=== PATIENT | male | born 1985 | race Caucasian/White ===

== ENCOUNTER 2016-07-15 04:47 | Emergency (ER) | payer OTHER ==
[2016-07-15 05:07] VITALS: TEMP 97.5
[2016-07-15] MEDS ORDERED: Sodium Chloride 0.9% 1,000 ML IV ONE ×2 (05:12→05:44)
[2016-07-15 05:32] LABS: BASO % 0.2 % (0.0-2.0); HEMATOCRIT 41.7 % (35.0-51.0); LYMPH # 0.4 K/uL (1.0-4.3); LYMPH % 2.9 % (20.0-40.0); MEAN CELL VOLUME 89.4 fL (80.0-94.0); MEAN CORPUSCULAR HEMOGLOBIN 29.3 pg (27.0-31.0); MEAN CORPUSCULAR HGB CONC 32.8 g/dL (33.0-37.0); MEAN PLATELET VOLUME 7.6 fL (7.2-11.7); MONO # 0.3 K/uL (0.0-0.8); MONO % 2.4 % (0.0-10.0); PLATELET COUNT 309 K/uL (130-400); WHITE BLOOD COUNT 13.8 K/uL (4.8-10.8)
[2016-07-15 05:42] LABS: CHLORIDE 98 mmol/L (98-107)
[2016-07-15 05:43] LABS: SODIUM 139 mmol/L (132-148)
[2016-07-15 05:45] LABS: ALB/GLOB RATIO 1.5 (1.0-2.1); ALKALINE PHOSPHATASE 61 U/L (38-126); ALT/SGPT 20 U/L (21-72); AST/SGOT 18 U/L (17-59); BILIRUBIN,TOTAL 0.8 mg/dL (0.2-1.3); BLOOD UREA NITROGEN 12 mg/dL (9-20); CARBON DIOXIDE 23 mmol/L (22-30); GFR AFRICAN-AMERICAN > 60; GLUCOSE,RANDOM 121 mg/dL (75-110); TOTAL PROTEIN 7.7 g/dL (6.3-8.3)
[2016-07-15 05:46] LABS: CALCIUM 9.3 mg/dl (8.6-10.4)
--- NOTE | 2016-07-15 06:15 | C.PDOC ---
History Of Present Illness 30 year old male presents to the ED with complaints of epigastric pain after eating dinner and three episodes of non-bloody non-bilious vomiting. Patient notes a history of irritable bowl syndrome and had no complaints prior to dinner. He denies any fever or diarrhea. Chief Complaint (Nursing): Abdominal Pain History Per: Patient History/Exam Limitations: no limitations Onset/Duration Of Symptoms: Hrs Current Symptoms Are (Timing): Still Present Context: Food Location Of Pain/Discomfort: Epigastric Quality Of Discomfort: "Pain" Associated Symptoms: Vomiting. denies: Fever, Chills, Diarrhea Exacerbating Factors: denies: Cough Past Medical History Reviewed: Historical Data, Nursing Documentation, Vital Signs Vital Signs: Last Vital Signs Temp 97.5 F L 07/15/16 05:00 Pulse 82 07/15/16 05:00 Resp 20 07/15/16 05:00 BP 120/74 07/15/16 05:00 Pulse Ox 99 07/15/16 06:17 Family History: States: Unknown Family Hx - Social History Hx Alcohol Use: No Hx Substance Use: No Review Of Systems Constitutional: Negative for: Fever, Chills, Sweats Respiratory: Negative for: Cough, Shortness of Breath Gastrointestinal: Positive for: Vomiting, Abdominal Pain (epigastric). Negative for: Nausea, Diarrhea Physical Exam - Physical Exam Appears: Non-toxic, No Acute Distress Skin: Warm, Dry Head: Normacephalic Eye(s): bilateral: PERRL, EOMI Ear(s): Bilateral: Normal Nose: Normal Oral Mucosa: Dry Tongue: Normal Appearing, No Swelling Lips: Normal Appearing, No Swelling Throat: Normal, No Erythema Neck: Normal ROM, Supple Chest: Symmetrical, No Deformity Cardiovascular: Rhythm Regular Respiratory: No Accessory Muscle Use, No Rales, No Rhonchi, No Stridor, No Wheezing Gastrointestinal/Abdominal: Soft, No Tenderness, No Distention, No Guarding, No Rebound Extremity: Normal ROM, No Tenderness Neurological/Psych: Oriented x3 ED Course And Treatment - Laboratory Results Result Diagrams: 07/15/16 05:31 07/15/16 05:31 O2 Sat by Pulse Oximetry: 99 Medical Decision Making Medical Decision Makin:20am: Patient feeling better. Patient to be discharged with Rx and followup instructions. Disposition - Disposition Referrals: [facility] [Outside] [facility] [Outside] Disposition Time: 06:30 Condition: IMPROVED Additional Instructions: Thank you for letting us take care of you today. Your provider was Dr. Lieberman. You were treated for gastritis. The emergency medical care you received today was directed at your acute symptoms. If you were prescribed any medication, please fill it and take as directed. It may take several days for your symptoms to resolve. Return to the Emergency Department if your symptoms worsen, do not improve, or if you have any other problems. Please contact your doctor or call one of the physicians/clinics you have been referred to that are listed on the Patient Visit Information form that is included in your discharge packet. Bring any paperwork you were given at discharge with you along with any medications you are taking to your follow up visit. Our treatment cannot replace ongoing medical care by a primary care provider (PCP) outside of the emergency department. Thank you for allowing the [facility] team to be part of your care today. Follow up with the clinic this week for re-evaluation. Prescriptions: Simethicone [Mylicon Chew Tab] 80 mg PO Q8 PRN #20 ctb PRN Reason: Irritable Bowel Symptoms Ranitidine HCl [Zantac] 150 mg PO BID #20 tablet Instructions: Gastritis (ED) - Clinical Impression Clinical Impression: Gastritis - Scribe Statement The provider has reviewed the documentation as recorded by the Scribe Ligia Shay All medical record entries made by the [place] were at my direction and personally dictated by me. I have reviewed the chart and agree that the record accurately reflects my personal performance of the history, physical exam, medical decision making, and the department course for this patient. I have also personally directed, reviewed, and agree with the discharge instructions and disposition.
[2016-07-15 06:25] LABS: NEUTROPHIL 93 % (50-75); TOTAL CELLS COUNTED 100
[2016-07-15] MEDS ORDERED: Simethicone 80 mg Chewtab PO STA (06:26)
[2016-07-15 06:35] VITALS: BP 125/87; PULSE 73; RESP 16
[2016-07-15 06:36] VITALS: O2SAT 99
== END 2016-07-15 06:58 | disposition home or self-care (01) ==
LOC: C.ER 04:47
DX: K29.70 Gastritis, unspecified, without bleeding (principal)
CPT/HCPCS: 80053; 83690; 85025; 96361; 96374; 96375; 99284; J2270; J2405; J7040